=== PATIENT | male | born 1990 | race Caucasian/White ===

== ENCOUNTER 2016-09-20 17:40 | Emergency (ER) | payer MEDICAID ==
[~2016-09-20] VITALS: Ht 185.4 cm; Wt 108.9 kg
[2016-09-20 17:47] VITALS: BP 114/93
--- NOTE | 2016-09-20 18:12 | NUR ---
Pt placed in bed 5 by EMS. [place] [employer] at bedside.
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
--- NOTE | 2016-09-20 19:01 | NUR ---
Pt report given to JOE LANGSTON. Transfer of care at this time.
--- NOTE | 2016-09-20 19:17 | NUR ---
Patient being evaluated by physician at bedside.
--- NOTE | 2016-09-20 19:59 | NUR ---
IM MEDS GIVEN-NADR AT THIS TIME
--- NOTE | 2016-09-20 20:00 | NUR ---
Pupils equal and reactive to light bilaterally. No facial droop noted. No smile deficit noted. Speech normal for patient. Patient is alert and oriented to person, place, time and event. Bilateral hand licensed certified orthotist equal. Bilateral foot push equal.
[2016-09-20 20:22] VITALS: BP 122/78
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
== END 2016-09-20 20:22 ==
LOC: MED 17:40
DX: S00.81XA Abrasion of other part of head, initial encounter (principal); R03.0 Elevated blood-pressure reading, without diagnosis of hypertension; J45.909 Unspecified asthma, uncomplicated; X58.XXXA Exposure to other specified factors, initial encounter; Y93.39 Activity, other involving climbing, rappelling and jumping off; Y92.89 Other specified places as the place of occurrence of the external cause; Y99.8 Other external cause status
CPT/HCPCS: 90471; 90715; 99283